=== PATIENT | male | born 1985 | race African-American/Black ===

== ENCOUNTER 2024-02-09 06:42 | Emergency (ER) | payer SELFPAY ==
[2024-02-09 06:51] VITALS: BP 123/86
[2024-02-09 07:00] VITALS: BMI 21.1
--- NOTE | 2024-02-09 07:08 | ED.GENMED ---
History of Present Illness
General
Chief Complaint: Jaw Pain
Source: patient
Time Seen by Provider: 02/09/24 06:55
History of Present Illness
History of Present Illness:
38yoM with no significant past medical history presenting for evaluation of dental pain. Patient reports right lower dental pain that initially began 5 days ago. Over the past 24 hours, patient has developed pain and swelling in the right
submandibular area. He states it feels like his throat was closing and he is having difficulty swallowing. He was taking Tylenol and ibuprofen without much relief. He denies any fevers or chills. He does not regularly seek dental care and has
not seen a dentist since the sixth grade.
Past History
Past History
ED Past Medical History: None
ED Past Surgical History: None
Social History
Tobacco: Non-smoker
Alcohol: Occasional
Personal: Single
Living: with family
Employment: Employed
Family History
Family History: Hypertension
Phy Exam
General Physical Exam
General Presentation: well appearing and no apparent distress
General age: appears stated age
General Skin: warm and dry
General Habitus: normal
General Mental: alert
ENT Exam
ENT Exam: TM's normal, pharynx normal, neck supple, normocephalic and other (No periapical abscess or gingival swelling noted. No dental tenderness. Mild fullness to the R submandibular space with tenderness. Mild trismus noted. Normal phonation.
Tolerated oral secretions without difficulty. )
Cardiovascular Exam
Cardiovascular Exam: regular rate/rhythm and no murmur
Pulmonary Exam
Pulmonary Exam: lungs clear, no respiratory distress, no crackles and no wheezing
Neurological Exam
Neurological Exam: alert
Course
Orders/Labs/Results
Orders:
Orders
02/09/24 07:07
CT Neck With Iv Contrast Urgent
Comment:
Reason For Exam: R lower dental and submandibular pain
0.9% Sodium Chloride 1000 ml [Nss] 1,000 ml IV BOLUS
Ketorolac [Toradol] 15 mg IV NOW STA
02/09/24 07:23
Basic Metabolic Panel Urgent
Complete Blood Count/With Diff Urgent
02/09/24 09:00
Dexamethasone Sod Phosphate [Decadron] 10 mg IV NOW STA
Abnormal Lab Results
02/09/24
07:23
WBC 17.8 H 10^3/uL
(4.8-10.8)
RBC 4.63 L 10^6/uL
(4.70-6.10)
Abs Immat Gran (auto) 0.1 H 10^3/uL
(0-0.05)
Absolute Neuts (auto) 13.1 H 10^3/uL
(1.4-6.5)
Absolute Monos (auto) 1.9 H 10^3/uL
(0.1-0.6)
Lymphocytes % 12.4 L %
(20.5-51.1)
Monocytes % 10.6 H %
(1.7-9.3)
BUN 7 L mg/dl
(9-20)
Creatinine 0.6 L mg/dL
(0.7-1.3)
02/09/24 07:23
02/09/24 07:23
Vital Signs
Initial and Last Documented VS:
Initial Vital Signs
Temp Pulse Resp BP Pulse Ox
98.7 F 70 18 123/86 100
02/09/24 06:51 02/09/24 06:51 02/09/24 06:51 02/09/24 06:51 02/09/24 06:51
Last Documented Vital Signs
Temp Pulse Resp BP Pulse Ox
98.7 F 71 16 128/96 100
02/09/24 06:51 02/09/24 08:00 02/09/24 08:00 02/09/24 09:00 02/09/24 09:00
MDM/Problems Addressed
Differential Diagnosis Includes:
38yoM here with R facial pain and swelling. Initially started with R lower dental pain 5 days ago. Now c/o submandibular pain within the last 24 hours. No f/c. He is afebrile and hemodynamically stable. He is well appearing in no distress. There is
mild fullness to the R submandibular area with tenderness on exam. Airway is patent and he is tolerating oral secretions. Differential diagnosis includes but is not limited to: dental infection, abscess, facial cellulitis, Trav's
Initial ED plan: Check CBC, BMP, and CT neck with contrast. IV Toradol and fluid bolus for symptoms.
*Critical Care Note
Total Time (30-74mins, 75-104mins- exclusive of procedures): Not Applicable
Update Note
Update Note:
Labs reveal a leukocytosis with a WBC of 17.8. Remainder of labs unremarkable. CT shows mild soft tissue edema and stranding within the R angle of the jaw suspicious for mild cellulitis. No abscess or deep space infection noted. No indication for
admission. Will give dose of Decadron here and discharge with Augmentin. Advised close f/u with a dentist and PCP. ED return precautions discussed. He expressed understanding and is agreeable to plan. He was discharged in stable condition.
ED Attending Note
-
Portions of this chart may have been created with voice recognition software.� Occasional wrong word or��sound alike� substitutions may have occurred due to the inherent limitations of voice recognition software.
Discharge Plan
Departure
Patient Disposition: Home (Routine Discharge)
Date of Disposition: 02/09/24
Time of Disposition: 09:00
Patient with high blood pressure during this ER visit?: No
Discharge Problem:
Facial cellulitis
Instructions: Dental Pain (DC)
Prescriptions:
New
amoxicillin-pot clavulanate 875-125 mg tablet
1 tab PO BID Qty: 14 0RF
Referrals:
NONE,* [Family Provider] -
Stand Alone Forms: Return to Work
Activity Restrictions/Additional Instructions:
Take antibiotics as prescribed. Take Tylenol and ibuprofen as needed for pain.
Please follow-up with a dentist. Return to the ER with any worsening symptoms, fevers, inability to swallow.
[facility], [facility]
[address] [place] [address]
[phone]
Interventions
Interventions:
*Risk Screen - Suicide Last Done: 02/09/24 06:51
*General Assessment Last Done: 02/09/24 06:51
*Neglect/Abuse Screening Last Done: 02/09/24 06:51
*ED COVID-19 Vaccine History Last Done: 02/09/24 07:02
ED-EENT Assessment Last Done: 02/09/24 07:03
ED- Cardiac Assessment Last Done: 02/09/24 07:03
Discharge Date and Time
Print Language: YORUBA
[2024-02-09] MEDS: NSS 1000 IV (07:24)
[2024-02-09] MEDS: TORADOL 15 MG IV (07:24)
[2024-02-09 07:39] LABS: % Basophils 0.3 % (0-2); % Eosinophils 2.8 % (0-6); % Immature Granulocytes 0.5 % (0-0.5); % Lymphocytes 12.4 % (20.5-51.1); % Monocytes 10.6 % (1.7-9.3); % Neutrophils 73.4 % (42.2-75.2); Absolute Basophils 0.1 10^3/uL (0-0.2); Absolute Eosinophils 0.5 10^3/uL (0-0.7); Absolute Immature Granulocytes 0.1 10^3/uL (0-0.05); Absolute Lymphocytes 2.2 10^3/uL (1.2-3.4); Absolute Monocytes 1.9 10^3/uL (0.1-0.6); Absolute Neutrophils 13.1 10^3/uL (1.4-6.5); Hematocrit 40.2 % (39.0-52.0); Mean Corp Hgb Conc. 34.8 g/dL (33.0-37.0); Mean Corpuscular Hgb 30.2 pg (27.0-31.0); Mean Corpuscular Volume 86.8 fL (80.0-94.0); Mean Platelet Volume 9.3 fL (7.4-10.4); Nucleated Red Blood Cells % 0 % (-); Platelet Count 332 10^3/uL (130-400); Red Blood Cell Count 4.63 10^6/uL (4.70-6.10); White Blood Cell Count 17.8 10^3/uL (4.8-10.8)
[2024-02-09 07:46] LABS: Blood Urea Nitrogen 7 mg/dl (9-20); Calcium 9.8 mg/dl (8.4-10.2); Carbon Dioxide 27 mmol/L (22-30); Chloride 103 mmol/L (98-107); Estimated Creatinine Clearance > 125 ml/min; Glucose 97 mg/dl (70-99); Potassium 4.4 mmol/L (3.5-5.1); Sodium 137 mmol/L (135-145); eGFR > 60.00
[2024-02-09 08:00] VITALS: BP 128/97
[2024-02-09 09:00] VITALS: BP 128/96
[2024-02-09] MEDS: DECADRON 10 MG IV (09:20)
== END 2024-02-09 09:00 | disposition home or self-care (01) ==
LOC: EMR 06:42
PROVIDERS: Physician Assistant; EMERGENCY PHYSICIAN Emergency Medicine
DX: L03.211 Cellulitis of face (principal); K08.89 Other specified disorders of teeth and supporting structures; R22.0 Localized swelling, mass and lump, head; R13.10 Dysphagia, unspecified; R68.84 Jaw pain
CPT/HCPCS: 99285; 96361; 96374; 96375; 70491; 80048; 85025; Q9967

== ENCOUNTER 2025-02-08 19:52 | Emergency (ER) | payer SELFPAY ==
[2025-02-08 19:54] VITALS: BP 119/77
--- NOTE | 2025-02-09 00:03 | ED.GENMED ---
History of Present Illness
General
Chief Complaint: Trauma Significant Mechanism
Source: patient and family
Exam Limitations: none
Time Seen by Provider: 02/08/25 23:44
Nursing documentation reviewed up to this point in time: agreed with
History of Present Illness
History of Present Illness:
39-year-old male presenting the emergency department today after jumping off a 6-8 foot (estimate) deck onto concrete ground landing both heels meetly felt pain to the area difficulty with ambulation since. Denies additional injuries otherwise.
Past History
Past History
ED Past Medical History: None
ED Past Surgical History: None
Social History
Tobacco: Non-smoker
Alcohol: Occasional
Personal: Single
Living: with family
Employment: Employed
Family History
Family History: Hypertension
Review of Systems
Review of Systems
Allergies reviewed?: Yes
All Other Systems: ROS reviewed and negative except as documented in HPI and ROS
Phy Exam
Physical Exam
Physical Exam:
GENERAL: Alert , in no apparent distress
EYE: pupils equal and reactive
NECK: Supple, no significant adenopathy.
ENT: o/p clr, mmm.
CARDIAC: Regular rate and rhythm .
LUNGS: Clear breath sounds bilaterally, no acute respiratory distress, no wheezes/rales/rhonchi
ABDOMEN: Soft, without focal tenderness, no r/g, no cvat
NEUROLOGICAL: Alert and oriented, no focal neuro deficits
SKIN: Warm and dry, skin intact.
MUSCULOSKELETAL: Discomfort to the heels of the bilaterally with pressure. No overlying skin changes. No discomfort throughout the ankles. No edema, well perfused.
PSYCH: Normal and appropriate interaction.
Course
Orders/Labs/Results
Orders:
Orders
02/08/25 19:57
CR Heel/os Calcis - Left 2 Vw* Urgent
Comment:
Reason For Exam: pain
Heel, Right 2 View [CR Heel/os Calcis - Right 2 Vw] Urgent
Comment:
Reason For Exam: pain
02/09/25 00:03
Crutches-Treatment ONCE
boot [Ortho Boot Right- Treatment] ONCE
Short or tall?: Short
Vital Signs
Initial and Last Documented VS:
Initial Vital Signs
Temp Pulse Resp BP Pulse Ox
98 F 88 16 119/77 96
02/08/25 19:54 02/08/25 19:54 02/08/25 19:54 02/08/25 19:54 02/08/25 19:54
Last Documented Vital Signs
Temp Pulse Resp BP Pulse Ox
98 F 88 16 119/77 96
02/08/25 19:54 02/08/25 19:54 02/08/25 19:54 02/08/25 19:54 02/08/25 19:54
MDM/Problems Addressed
MDM/Problems Addressed:
39-year-old male presenting to the emergency department for bilateral heel pain after jumping from about 6 to 8 feet onto his heels bilaterally. Difficulty walking since this happened 2 days ago. Right side is slightly worse than the left. X-rays
without signs of fracture patient no general distress. Appears stable for close outpatient follow-up. Return precautions given.
*Pulse Oximetry
SaO2: 96
Oxygen Mode of Delivery: Room air
Patient hypoxic: no (96)
*Critical Care Note
Total Time (30-74mins, 75-104mins- exclusive of procedures): Not Applicable
ED Attending Note
-
Portions of this chart may have been created with voice recognition software.� Occasional wrong word or��sound alike� substitutions may have occurred due to the inherent limitations of voice recognition software.
Discharge Plan
Departure
Patient Disposition: Home (Routine Discharge)
Date of Disposition: 02/09/25
Time of Disposition: 00:05
Patient with high blood pressure during this ER visit?: No
Condition: Good
Covid-19: Not Applicable
Discharge Problem:
Heel pain
Instructions: Muscle, joint, and bone pain - Discharge instructions
Prescriptions:
No Action
No Current Medications
0
Referrals:
Parmjit Mejia MD [Active, Orthopedics]
Activity Restrictions/Additional Instructions:
You came to the emergency department today with concerns of bilateral heel pain. Here x-rays without sign fracture. Please rest ice compress and elevate help with symptoms follow-up closely with Ortho if symptoms are persisting. Return for any
worsening, new or concerning symptoms.
Interventions
Interventions:
*Risk Screen - Suicide Last Done: 02/08/25 19:54
*Neglect/Abuse Screening Last Done: 02/08/25 19:54
Discharge Date and Time
Print Language: WELSH
[2025-02-09 00:26] VITALS: BP 129/97
== END 2025-02-09 00:27 | disposition home or self-care (01) ==
LOC: EMR 19:52
PROVIDERS: EMERGENCY PHYSICIAN Emergency Medicine
DX: M79.671 Pain in right foot (principal); M79.672 Pain in left foot; Z82.49 Family history of ischemic heart disease and other diseases of the circulatory system
CPT/HCPCS: 99283; 73650